=== PATIENT | male | born 2000 | race Caucasian/White ===

== ENCOUNTER 2025-03-25 14:18 | Emergency (ER) | payer MEDICAID, SELFPAY ==
--- OUTSIDE RECORDS SUMMARY | 2023-10-16 10:30 | XMS_ITS ---
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 Social History Sex Assigned At : Social History Observation Description Sex Assigned At Male Encounters Encounter Location Date Provider Diagnosis [address] [id number] 10/16/2023 Duran Owusu Plan Of Treatment No Information Progress Notes * QUEENIE MCKAY MDOB:[birth year] (25 yo M)Acc No.[id number]:10/16/2023 Progress Notes Patient: Liyah ARTEAGA QUEENIE Liyah Provider: RUFINO Charles PA-C :2000 A ge:23 Y S ex:Male Date:10/16/2023 Phone: Address:[address] [place] [address] Pcp:John Hastings Subjective: * Chief Complaints: * N P EST CARE Billing Information: * Procedure Codes: * Electronic signature of Juan Owusu PA-C on 03/25/2025 at 06:07 PM EDT Sign off status: Pending * Provider: RUFINO Charles PA-C Date: 0 10/16/2023 Generated for Printi ng/Faxing/eTransmitting on: 0 03/25/2025 06:07 PM EDT
--- OUTSIDE RECORDS SUMMARY | 2023-11-22 05:45 | XMS_ITS ---
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 :2000 A ge:23 Y S ex:Male Date:11/22/2023 Phone: Address:[address] [place], [place] [id number] Pcp:John Hastings Subjective: * Chief Complaints: * N p est care Billing Information: * Procedure Codes: * Electronic signature of Forrest Peguero MD on 03/25/2025 at 06:06 PM EDT Sign off status: Pending * Provider: Esha Peguero M.D. Date: 0 11/22/2023 Generated for Printi ng/Faxing/eTransmitting on: 0 03/25/2025 06:06 PM EDT
--- NOTE | ~2025-03-25 | XR_ITS ---
EXAMINATION: XR CHEST CLINICAL INFORMATION: fever cough COMPARISON: None available. TECHNIQUE: 2 views of the chest were obtained. FINDINGS: The cardiac, hilar, and mediastinal contours are normal. The lungs are clear bilaterally. There is no pneumothorax or pleural effusion. There is no focal osseous or soft tissue abnormality. XR/XR chest 2V IMPRESSION: Normal chest. Electronically signed by: Hany Asencio MD 03/25/2025 02:47 PM EDT
[2025-03-25 14:25] VITALS: BP 134/73; PULSE 68; RESP 18; TEMP 36.9; O2SAT 100; BMI 30.8
--- NOTE | 2025-03-25 14:33 | ED_ITS ---
HPI - General Adult General Chief complaint: Upper Respiratory Symptoms Stated complaint: Congestion, SOB Time Seen by Provider: 03/25/25 19:46 Source: patient, RN notes reviewed and old records reviewed Mode of arrival: ambulatory Limitations: no limitations History of Present Illness ED Provider: Zana WARE narrative: 25-year-old male with past medical history significant for asthma presents for evaluation of cough, congestion, sinus pressure, sore throat. His symptoms started 4 or 5 days ago. He reports that he was recently in [facility] for work for the last 2 months pain He flew back this morning He reports coworkers with similar symptoms. He feels as though he can not take a complete breath. No history of DVT or PE. He reports that he does smoke/vape Related Data Previous Rx's ?Medication ?Instructions ?Recorded azithromycin 250 mg tablet See Rx Instructions PO .COM PLEX #6 03/25/25 tabs prednisone 20 mg tablet 40 mg (2 x 20 mg) PO DAILY # 10 tabs 03/25/25 Allergies Allergy/AdvReac Type Severity Reaction Status Date / Time No Known Allergies Allergy Verified 03/25/25 14:26 Review of Systems Constitutional: Constitutional: Reports body ache(s), Reports chills, Reports fever(s) and Reports malaise ENT: Reports sore throat Cardiovascular: Cardiovascular: Denies chest pain, Reports dyspnea and Reports dyspnea on exertion Respiratory: Respiratory: Reports change in phlegm color, Reports chest congestion, Reports cough, Reports dyspnea and Reports dyspnea on exertion Gastrointestinal: Gastrointestinal: Denies abdominal pain, Denies loose stools and Denies vomiting Musculoskeletal: Musculoskeletal: Denies back pain Integumentary/Breasts: Skin/Breast: Denies rash Psychiatric: Psychiatric: Reports anxiety PMFSH Social History Social History Advance Directives: No Advance Directives Information Provided: Yes Do you have a plan to hurt others: No Plan Physical Exam ED Vital Signs: Vital Signs - 24 hr 03/25/25 14:25 03/25/25 19:48 Temperature 98.4 F 97.5 F Pulse Rate 68 64 Respiratory Rate 18 16 Blood Pressure 134/73 116/56 L Pulse Oximetry 100 99 Oxygen Delivery Method Room Air Room Air BMI result Body Mass Index 30.8 Const General: healthy appearing, comfortable, no acute distress, alert and awake Nutritional Appearance: well nourished Orientation/consciousness: patient oriented x3 HENMT Head: Yes normocephalic and Yes atraumatic Throat: Yes posterior oropharynx normal Eyes Eyelids: Yes eyelids normal Conjunctivae: conjunctivae normal Sclerae: sclerae normal Corneas: corneas normal Pupils: Equal, round and reactive pupils present EOM: EOMs intact bilaterally Neck Neck: Yes full ROM Resp Effort & Inspection: normal respiratory effort, able to speak in complete sentences, no audible wheezes and not labored Auscultation: clear to auscultation bilaterally Cardio Rate: regular rate Rhythm: regular rhythm Skin General skin exam: elasticity normal Neuro General: patient oriented x3 Cranial nerves: Yes Equal, round and reactive pupils present and Yes Bilaterally intact EOM present Cognition (Neuro): normal cognition Extrem Other: Moving all extremities well without any obvious deformities Course Course Course Narrative: This is a Rapid Medical Examination (RME) performed by Curtis Nielsen PA-C in triage. Full HPI, ROS, assessment and treatment plan per primary provider in the Main ED. Hx: 25 yo M here for eval of fver, cough, congestion, sob x1 week. Plan: viral swabs, cxr Medical Decision Making Medical Decision Making [facility] Narrative: 25-year-old male presents for evaluation of upper respiratory symptoms for the last 4 or 5 days. He has a history of asthma in his a smoker, his lungs are clear to auscultation, he had a chest x-ray does not show pneumonia or pleural effusions, he is not tachycardic, tachypneic or hypoxic, he is PERC negative. He is a smoker. Plan to discharge the patient with prednisone and azithromycin for symptomatic care of upper respiratory infection Differential Diagnosis Differential Diagnoses: The differential diagnosis associated with the presentation includes Upper respiratory infection Bronchitis Pneumonia Sinusitis Lab Data Labs: Lab Results 03/25/25 Range/Units 14:58 COVID-19 (GISELLA) Negative (Negative) COVID-19 Clin Com See Note Influenza Type A (LUISA) Negative (Negative) Influenza Type B (LUISA) Negative (Negative) Influenza A & B Note See Note Independent Interpretation I performed an independent interpretation of an: Plain X-Ray Interpretation: No focal infiltrates Radiology Impression Discussion of test interpretation with radiology: I have reviewed the radiologist's reading. Radiologist Impression: FINDINGS: The cardiac, hilar, and mediastinal contours are normal. The lungs are clear bilaterally. There is no pneumothorax or pleural effusion. There is no focal osseous or soft tissue abnormality. XR/XR chest 2V IMPRESSION: Normal chest. Electronically signed by: Hany Asencio MD 03/25/2025 02:47 PM EDT Prescription Management I considered prescription management with: Antibiotic Discharge Plan Discharge Clinical Impression: Upper respiratory infection Patient Disposition: Home, Self-Care Instructions: Upper Respiratory Infection (ED) Additional Instructions: Your chest x-ray was clear. Your viral swabs are negative for flu and COVID. Take azithromycin prednisone as prescribed for an upper respiratory infection. Use your inhalers as needed Prescriptions: New azithromycin 250 mg tablet See Rx Instructions .ROUTE .COMPLEX Qty: 6 0RF Rx Instructions: For 250 mg dose pack: take 500 mg today (day 1), then 250 mg for 4 days (days 2-5) prednisone 20 mg tablet 40 mg PO DAILY Qty: 10 0RF Print Language: Romansh
[2025-03-25 15:40] LABS: COVID-19 Test Negative (Negative); IDNOW Serial# 55D5AD1C; IDNOW Serial# 58CA691E; Influenza B2 Negative (Negative)
--- OUTSIDE RECORDS SUMMARY | 2025-03-25 18:07 | XMS_ITS | Patient Health Record ---
Author Organization [facility] Address [address], [place] [phone] Care Team Providers Care Patch Worker Name Role Phone John Hastings Primary Care Provider [phone] Unavailable Allergies No Known Allergies Reason For Referral No Information Medications Medication SIG (Take, Route, Frequency, Duration) Notes Start Date End Date Status predniSONE 20 mg tablet 1 tab(s) orally once a day; Duration: 7 day(s) 10/13/2023 Active albuterol CFC free 90 mcg/inh aerosol 2 puff(s) inhaled 4 times a day; Duration: 30 days prn 01/01/2016 Active Immunizations Vaccine Route Administration Date Status Comme nts Varicella (Varivax) Unknown 02/28/2000 Administered Varicella (Varivax) Unknown 02/29/2008 Administered Tdap (7 yrs or older) Unknown 10/22/2009 Administered Prevnar /0-60 months Unknown 02/28/2000 Administered Prevnar /0-60 months Unknown 06/30/2000 Administered Polio (IPV) Unknown 1999 Administered Polio (IPV) Unknown 1999 Administered Polio (IPV) Unknown 01/31/2000 Administered Polio (IPV) Unknown 01/19/2004 Administered MMR LIVE Unknown 02/28/2000 Administered MMR LIVE Unknown 01/19/2004 Administered Meningococcal Unknown 08/04/2010 Administered Meningococcal IM Intramuscular 03/06/2015 Administered HPV 3 dose (Gardisil) Unknown 03/06/2015 Refused HPV (Gardasil 9) Unknown 04/13/2016 Refused Hib(PRP-T) 4 dose schedule Unknown 01/31/2000 Administered Hib(PRP-T) 4 dose schedule Unknown 02/05/2001 Administered HepB-Hib (Comvax) Unknown 1999 Administered HepB-Hib (Comvax) Unknown 1999 Administered Hepatitis B (ped/adolescent) 3 dose schedule Unknown 02/12/2014 Administered From [facility] records Hepatitis A(peds/adolescent) 2 dose schedule Unknown 08/04/2010 Administered Hepatitis A(peds/adolescent) 2 dose schedule Unknown 01/20/2012 Administered Flu/Influenza .50 ml 3 yrs or older [Quadrivalent] Unknown 08/04/2010 Administered Flu/Influenza .50 ml 3 yrs or older [Quadrivalent] Unknown 04/26/2012 Administered Flu/Influenza .50 ml 3 yrs or older [Quadrivalent] Unknown 04/13/2016 Refused DTaP under 7 yrs Unknown 1999 Administered DTaP under 7 yrs Unknown 1999 Administered DTaP under 7 yrs Unknown 01/31/2000 Administered DTaP under 7 yrs Unknown 02/05/2001 Administered DTaP under 7 yrs Unknown 01/19/2004 Administered Social History Tobacco Use: Social History Observation Description Date Details (start date - stop date) Never Smoker NA - NA Sex Assigned At : Social History Observation Description Sex Assigned At Male Social History Social History Social Info Question Answer Notes Alcohol Screening Did you have a drink containing alcohol in the past year? No Points 0 Interpretation Negative SMOKING Are you a: never smoker Sexual History Had sex in the past 12 months (vaginal, oral, or anal) Yes with Women only Use protection? No Have you ever had an STD? No Section Notes: vapes alcohol occasionally marijuana- stopped three months ago Problems Problem Type SNOMED Code ICD Code Onset Dates Problem Status W/U Status Risk Notes Problem Acne (62731218) Acne (L70.9) Active confirmed Problem Thrombocytopenic disorder (464776114) Temporary low platelet count (D69.6) Active confirmed Problem Anxiety (02634200) Anxiety (F41.9) Active confirmed Problem Obesity (593253818) Obesity, unspecified (E66.9) Active confirmed Problem Reactive depression (72725587) Reactive depression (F32.9) 12/15/19 17 Active confirmed Problem Laboratory test (30083472) Encounter for laboratory test (Z01.89) Active confirmed Problem Asthma (061843238) Unspecified asthma (J45.909) Active confirmed Problem Hypersomnia (07361738) Sleeping excessive (G47.10) Active confirmed Problem Seasonal allergic rhinitis (129470518) Seasonal allergic rhinitis, unspecified allergic rhinitis trigger (J30.2) Active confirmed Plan Of Treatment No Information Insurance Providers Payer Name Payer Address Payer Phone Subscriber Number Group Number Insured Name Patient Relationship to Insured Coverage Start Date Coverage End Date [facility] [address] [place] [phone] [id number] QUEENIE MCKAY Self - patient is the insured 4 Medications Administered Medication Instructions Date of Administration Dosage Notes [id number] 02/23/2015 125 mg LOT [id number] Medical (General) History Medical History History ICD Code normal lipid screen 2012 Cough variant asthms appendicitis Surgical History Surgery Date(Month/Year) appendectomy 2021 Hospitalization History Reason Date(Month/Year) appendectomy 2021 asthma exacerbation at 14 months old
--- OUTSIDE RECORDS SUMMARY | 2025-03-25 18:07 | XMS_ITS ---
Author Name [facility] Organization Unknown Encounters Encounter Type Encounter Reason Primary Diagnosis Location Date Emergency COUGH, CONGESTION, SOB [facility] 04/28/2024 Ambulatory [facility] 04/05/2022 Ambulatory [facility] 03/25/2022 Ambulatory [facility] 03/25/2022 Care Team Organization Name Specialty Phone Email Start Date End Da te [facility] 02/28/2024
--- NOTE | 2025-03-25 19:40 | PC.NURSE ---
patient reporting frustration due to having to wait so long. stated i am sick and no one is doing anything for me i cant breathe. patients vitals are stable able to speak in full sentences without difficulty. updated on plan of care
[2025-03-25 19:48] VITALS: BP 116/56; PULSE 64; RESP 16; TEMP 36.4; O2SAT 99
[2025-03-25 20:16] VITALS: BP 116/56; PULSE 64; RESP 16; TEMP 36.4; O2SAT 99
== END 2025-03-25 20:30 | disposition home or self-care (01) ==
PROVIDERS: Physician Assistant Medical; Emergency Provider Emergency Medicine
DX: J06.9 Acute upper respiratory infection, unspecified (principal); R06.02 Shortness of breath; R05.9 Cough, unspecified; R50.9 Fever, unspecified; Z11.52 Encounter for screening for COVID-19
CPT/HCPCS: 71046; 87502; 87635; 99282; 99283

== ENCOUNTER → 2025-03-25 14:33 | Outpatient (BNV) | payer SELFPAY | PROVIDERS: Visit Provider Radiology Diagnostic Radiology | DX: R05.9 Cough, unspecified (principal); R50.9 Fever, unspecified | CPT/HCPCS: 71046 ==